=== PATIENT | female | born 1975 | race Caucasian/White ===

== ENCOUNTER 2016-11-20 15:37 | Emergency (ER) | payer OTHER ==
[2016-11-20 15:45] VITALS: BP 144/90
[2016-11-20] MEDS ORDERED: Albuterol 2.5 MG/3 ML NEB.SOL* (0.083%) INH ONE (15:57)
--- NOTE | 2016-11-20 16:04 | UC ---
Respiratory Complaint HPI - HPI Summary HPI Summary: cough x 3 days + chest congestion , wheezing , chest tightness and sob no fever, no chills - History of Current Complaint Chief Complaint: UCGeneralIllness Stated Complaint: COUGH/CONGESTION/CHEST PRESSURE Time Seen by Provider: 11/20/16 15:43 Hx Obtained From: Patient Hx Last Menstrual Period: 11/06/16 ?: No Onset/Duration: Gradual Onset, Lasting Days - 3, Still Present Timing: Constant Severity Initially: Moderate Severity Currently: Moderate Character: Cough: Nonproductive Aggravating Factors: Exertion, Deep Breaths Alleviating Factors: Nothing Associated Signs And Symptoms: Positive: Wheezing, URI. Negative: Fever, Chills , Pleuritic Chest Pain, Hemoptysis, Dizziness, Calf Pain, Calf Swelling, Edema, Nasal Congestion, Hoarseness, Sinus Discomfort - Allergies/Home Medications Allergies/Adverse Reactions: Allergies Allergy/AdvReac Type Severity Reaction Status Date / Time No Known Allergies Allergy Verified 11/20/16 15:45 Home Medications: Home Medications Acyclovir [Zovirax] 200 mg PO DAILY 11/20/16 [History Confirmed 11/20/16] Atorvastatin* [Lipitor*] 10 mg PO DAILY 11/20/16 [History Confirmed 11/20/16] Cholecalciferol TAB* [Vitamin D TAB*] 5,000 units PO DAILY 11/20/16 [History Confirmed 11/20/16] Cyanocobalamin [Vitamin B 12] 250 mcg PO DAILY 11/20/16 [History Confirmed 11/20] Levothyroxine TAB* [Synthroid TAB*] 25 mcg PO DAILY 11/20/16 [History Confirmed 11/20/16] Lisinopril TAB* [Prinivil TAB*] 5 mg PO DAILY 11/20/16 [History Confirmed ] Multivitamins/Minerals TAB* [Theragran/minerals TAB*] 1 tab PO DAILY 11/20/16 [ History Confirmed 11/20/16] Norgestimate-Ethinyl Estradiol [Tri-Linyah] 1 tab PO DAILY 11/20/16 [History Confirmed 11/20/16] [place]-3 Fatty Acids [[place]-3 Fish Oil Concentr 1000 mg] 1 cap PO DAILY 11/20/16 [History Confirmed 11/20/16] Venlafaxine EXT RELEASE CAP* [Effexor Xr CAP*] 150 mg PO DAILY 11/20/16 [ History Confirmed 11/20/16] PMH/Surg Hx/FS Hx/Imm Hx Endocrine History Of: Reports: Thyroid Disease Cardiovascular History Of: Reports: Hypertension Respiratory History Of: Reports: Asthma - Surgical History Surgical History: Yes Surgery Procedure, Year, and Place: C section. T & A 2001 - Family History Known Family History: Negative: Diabetes - Social History Alcohol Use: None Substance Use Type: None Smoking Status (MU): Former Smoker Review of Systems Constitutional: Negative Skin: Negative Eyes: Negative ENT: Negative Respiratory: Shortness Of Breath, Cough Cardiovascular: Negative Gastrointestinal: Negative All Other Systems Reviewed And Are Negative: Yes Physical Exam Triage Information Reviewed: Yes Appearance: Well-Appearing, No Pain Distress, Well-Nourished Vital Signs: Initial Vital Signs Temp 98.3 F 11/20/16 15:40 Pulse 87 11/20/16 15:40 Resp 17 11/20/16 15:40 BP 144/90 11/20/16 15:40 Pulse Ox 99 11/20/16 15:40 Vital Signs Reviewed: Yes Eye Exam: Normal Eyes: Positive: Conjunctiva Clear ENT: Positive: Normal ENT inspection, Hearing grossly normal, Pharynx normal Neck: Positive: Supple, Nontender, No Lymphadenopathy Respiratory Exam: Normal Respiratory: Positive: Chest non-tender, No respiratory distress, No accessory muscle use, Wheezing. Negative: Respiratory distress Cardiovascular: Positive: RRR, No Murmur, Pulses Normal Skin Exam: Normal UC Diagnostic Evaluation - Laboratory O2 Sat by Pulse Oximetry: 99 Respiratory Course/Dx - Differential Dx/Diagnosis Provider Diagnoses: bronchitis Discharge - Discharge Plan Condition: Stable Disposition: HOME Prescriptions: Albuterol HFA INHALER* [Ventolin HFA Inhaler*] 2 puff INH Q6H PRN #1 mdi PRN Reason: Wheezing Azithromycin TAB* [Zithromax TAB (Z-CASIE) 250 mg #6 tabs] 2 tab PO .TODAY, THEN 1 DAILY #1 casie Patient Education Materials: Acute Bronchitis (ED) Additional Instructions: follow up with your pcp in 5 days as needed
[2016-11-20] MEDS ORDERED: Azithromycin TAB* 250 MG PO ONE (16:18)
== END 2016-11-20 16:27 | disposition home or self-care (01) ==
LOC: UCCORT 15:37
DX: J40 Bronchitis, not specified as acute or chronic (principal); E07.9 Disorder of thyroid, unspecified; I10 Essential (primary) hypertension; Z87.891 Personal history of nicotine dependence
CPT/HCPCS: 99203; A9270-GY; G0463